=== PATIENT | male | born 1965 | race Two or more races ===

== ENCOUNTER 2016-04-12 10:10 | Inpatient (IN) | payer OTHER ==
[2016-04-12 10:44] VITALS: BMI 23.1
--- NOTE | 2016-04-12 17:04 | HP ---
COWS - Scale Resting Pulse: 0= [place] 80 or Below Sweatin= Chills/Flushing Restless Observation: 1= Difficult to Sit Still Pupil Size: 0= Normal to Room Light Bone or Joint Aches: 2= Severe Diffuse Aches Runny Nose/ Eye Tearin= Runny Nose/Eyes GI Upset > 30mins: 1= Stomach Cramp Tremor Observation: 2= Slight Tremor Visible Yawning Observation: 1= 1-2x During Session Anxiety or Irritability: 2=Irritable/Anxious Goose Flesh Skin: 3=Piloerection COWS Score: 15 Admission ROS S - HPI Chief Complaint: WITHDRAWAL SX Allergies/Adverse Reactions: Allergies Allergy/AdvReac Type Severity Reaction Status Date / Time No Known Allergies Allergy Verified 04/12/16 15:50 History of Present Illness: 51 YEARS OLD MALE WITH LONG HISTORY OF HEROIN NICOTINE DEPENDENCE, DENIES MEDICAL MENTAL ISSUES LONGEST SOBRIETY 3 YEARS IS ADMITTED TO DETOX Exam Limitations: No Limitations - Ebola screening Have you traveled outside of the country in the last 21 days: No Have you had contact with anyone from an Ebola affected area: No Have you been sick,other than usual withdrawal symptoms: No Do you have a fever: No - Review of Systems Constitutional: Chills, Loss of Appetite, Changes in sleep, Unexplained wgt Loss EENT: reports: No Symptoms Reported Respiratory: reports: No Symptoms reported Cardiac: reports: No Symptoms Reported GI: reports: Poor Fluid Intake, Abdominal cramping : reports: No Symptoms Reported Musculoskeletal: reports: Back Pain, Joint Pain, Muscle Pain, Neck Pain Integumentary: reports: Change in Color (BOTH ARMS IV HEROIN) Neuro: reports: Tremors Endocrine: reports: No Symptoms Reported Hematology: reports: No Symptoms Reported Psychiatric: reports: Judgement Intact, Mood/Affect Appropiate, Orientated x3 Other Systems: Reviewed and Negative Patient History - Patient Medical History Hx Anemia: No Hx Asthma: No Hx Chronic Obstructive Pulmonary Disease (COPD): No Hx Cancer: No Hx Cardiac Disorders: No Hx Congestive Heart Failure: No Hx Hypertension: No Hx Hypercholesterolemia: No Hx Pacemaker: No HX Cerebrovascular Accident: No Hx Seizures: No Hx Dementia: No Hx Diabetes: No Hx Gastrointestinal Disorders: No Hx Liver Disease: No Hx Genitourinary Disorders: No Hx Sexually Transmitted Disorders: No Hx Renal Disease (ESRD): No Hx Thyroid Disease: No Hx Human Immunodeficiency Virus (HIV): No Hx Hepatitis C: Yes (TREATED IN 2008 AND COMPLETED) Hx Depression: No Hx Suicide Attempt: No Hx Bipolar Disorder: No Hx Schizophrenia: No - Patient Surgical History Past Surgical History: No Hx Neurologic Surgery: No Hx Cataract Extraction: No Hx Cardiac Surgery: No Hx Lung Surgery: No Hx Breast Surgery: No Hx Breast Biopsy: No Hx Abdominal Surgery: No Hx Appendectomy: No Hx Cholecystectomy: No Hx Genitourinary Surgery: No Hx Orthopedic Surgery: No - PPD History Previous Implant?: No Documented Results: Positive w/o proof Implanted On Prior R Admission?: No PPD to be Administered?: No - Reproductive History Patient : No - Smoking Cessation Smoking history: Current every day smoker Have you smoked in the past 12 months: Yes Aproximately how many cigarettes per day: 10 Cigars Per Day: 0 Hx Chewing Tobacco Use: No Initiated information on smoking cessation: Yes 'Breaking Loose' booklet given: 04/12/16 - Substance & Tx. History Hx Alcohol Use: No Hx Substance Use: Yes Substance Use Type: Cocaine, Opiates Hx Substance Use Treatment: Yes - Substances Abused Heroin Route: Injection Frequency: Daily Amount used: 15 Age of first use: 28 Date of Last Use: 04/11/16 Cocaine Route: Injection Frequency: Daily Amount used: $ 10- 20 Age of first use: 19 Date of Last Use: 04/11/16 Family Disease History - Family Disease History Family Disease History: Diabetes: Mother, Other: Father (EPILEPSY) Admission Physical Exam BHS - Vital Signs Vital Signs: Vital Signs - 24 hr 04/12/16 10:40 Temperature 97.1 F L Pulse Rate 64 Respiratory 18 Rate Blood Pressure 99/67 - Physical General Appearance: Yes: Appropriately Dressed, Mild Distress, Thin, Tremorous, Irritable, Sweating, Anxious HEENTM: Yes: Hearing grossly Normal, Normal ENT Inspection, Normocephalic, Normal Voice Respiratory: Yes: Chest Non-Tender, Lungs Clear, Normal Breath Sounds, No Respiratory Distress, No Accessory Muscle Use Neck: Yes: Supple, Trachea in good position Breast: Yes: Breasts Symetrical Cardiology: Yes: Regular Rhythm, S1, S2, Bradycardia Abdominal: Yes: Non Tender, Soft Genitourinary: Yes: Within Normal Limits Back: Yes: Normal Inspection Musculoskeletal: Yes: full range of Motion, Gait Steady, Back pain, Muscle Pain Extremities: Yes: Normal Range of Motion, Non-Tender, Tremors, Other (ARMS IV STEWART) Neurological: Yes: Fully Oriented, Alert, Motor Strength 5/5, Normal Mood/Affect , Normal Response Integumentary: Yes: Warm, Moist Lymphatic: Yes: Within Normal Limits - Diagnostic (1) Opioid dependence with withdrawal Current Visit: Yes Status: Acute (2) Nicotine dependence Current Visit: Yes Status: Acute Qualifiers: Nicotine product type: cigarettes Substance use status: uncomplicated Qualified Code(s): F17.210 - Nicotine dependence, cigarettes, uncomplicated (3) Hepatitis C carrier Current Visit: Yes Status: Resolved (4) Positive PPD, treated Current Visit: Yes Status: Resolved (5) Weight loss Current Visit: Yes Status: Acute Cleared for Admission [facility] - Detox or Rehab [facility] Level of Care: Medically Managed Detox Regimen/Protocol: Methadone [facility] Breath Alcohol Content Breath Alcohol Content: 0 Urine Drug Screen - Results Drug Screen Negative: No Urine Drug Screen Results: GEOFFREY-Cocaine, OPI-Opiates
[2016-04-12] MEDS ORDERED: diphenhydrAMINE HCL 50 MG CAPSULE PO PRN (17:05)
[2016-04-12] MEDS ORDERED: LOPERAMIDE HCL 2 MG CAPSULE PO PRN (17:05)
[2016-04-12] MEDS ORDERED: MENTHOL/PHENOL 1 EACH UD MM PRN (17:05)
[2016-04-12] MEDS ORDERED: ACETAMINOPHEN 325 MG TABLET (FP) PO PRN (17:05)
[2016-04-12] MEDS ORDERED: MAGNESIUM HYDROX 2400MG/30ML ORAL SUSPENSION 30 ML CUP PO PRN (17:05)
[2016-04-12] MEDS ORDERED: guaiFENesin/D-METHORPHAN HB 10 ML UNIT-DOSE CUPS PO PRN (17:05)
[2016-04-12] MEDS ORDERED: P-EPHED 60MG/TRIPROLIDI 2.5MG TABLET PO PRN (17:05)
[2016-04-12] MEDS ORDERED: MAG HYDROX/AL HYDROX/SIMETH 30 ML UNIT-DOSE CUP PO PRN (17:05)
[2016-04-12] MEDS ORDERED: IBUPROFEN 400 MG TABLET (FP) PO PRN (17:05)
[2016-04-12] MEDS ORDERED: MAGNESIUM CITRATE 300 ML BOTTLE PO PRN (17:05)
[2016-04-12] MEDS ORDERED: NICOTINE POLACRILEX 2 MG GUM BC PRN (17:05)
[2016-04-12] MEDS ORDERED: METHADONE HCL 10 MG TABLET (FOR DETOX USE ONLY) PO ONE ×2 (17:15→23:00)
[2016-04-12] MEDS: diazePAM 5 MG TABLET PO PRN (18:55)
[2016-04-12] MEDS: THIAMINE HCL 100 MG TABLET (FP) PO SCH (22:16)
[2016-04-13] MEDS ORDERED: METHADONE HCL 10 MG TABLET (FOR DETOX USE ONLY) PO ONE (10:00)
[2016-04-13] MEDS: PRENATAL VITAMINS W/ FOLIC ACID TABLET (FP) PO SCH (10:15)
[2016-04-13] MEDS: diazePAM 5 MG TABLET PO PRN (10:15)
[2016-04-13] MEDS: NICOTINE 14 MG/24 HOURS TOPICAL PATCH TD SCH (10:16)
[2016-04-13 10:34] LABS: MCH 30.3 pg (25.7-33.7); MCHC 32.9 g/dl (32.0-35.9); MEAN PLT VOLUME 9.6 fl (7.5-11.1); PLATELET COUNT 263 K/MM3 (134-434); WHITE BLOOD COUNT 6.2 K/mm3 (4.0-10.0)
[2016-04-13 10:41] LABS: URINE APPEARANCE CLEAR; URINE BILIRUBIN NEGATIVE (NEGATIVE); URINE BLOOD NEGATIVE (NEGATIVE); URINE COLOR LTYELLOW; URINE GLUCOSE (UA) NEGATIVE (NEGATIVE); URINE KETONE NEGATIVE (NEGATIVE); URINE LEUK ESTERASE NEGATIVE (NEGATIVE); URINE NITRITE NEGATIVE (NEGATIVE); URINE PROTEIN NEGATIVE (NEGATIVE); URINE UROBILINOGEN NEGATIVE E.U./dl (0.2-1.0)
[2016-04-13 11:05] LABS: ALBUMIN 3.7 g/dl (3.4-5.0); ALK PHOS 97 U/L (45-117); ANION GAP 7 (8-16); BILIRUBIN,TOTAL 0.5 mg/dL (0.2-1.0); CALCIUM 9.1 mg/dL (8.5-10.1); CO2 29 mmol/L (21-32); CREATININE 0.9 mg/dL (0.7-1.3); GLUCOSE,RANDOM 75 mg/dL (74-106); SGOT/AST 26 U/L (15-37); SGPT/ALT 28 U/L (12-78); TOT PROT 7.2 g/dl (6.4-8.2)
--- NOTE | 2016-04-13 11:21 | PN ---
BHS COWS - Scale Resting Pulse: 0= [place] 80 or Below Sweatin=Flushed/Facial Moisture Restless Observation: 1= Difficult to Sit Still Pupil Size: 0= Normal to Room Light Bone or Joint Aches: 2= Severe Diffuse Aches Runny Nose/ Eye Tearin= Runny Nose/Eyes GI Upset > 30mins: 2= Nausea/Diarrhea Tremor Observation of Outstretched Hands: 2= Slight Tremor Visible Yawning Observation: 1= 1-2x During Session Anxiety or Irritability: 2=Irritable/Anxious Goose Flesh Skin: 0=Smooth Skin COWS Score: 14 BHS Progress Note (SOAP) Subjective: ANXIETY,TREMORS,SWEATING,INTERRUPTED SLEEP,RESTLESS Objective: 04/13/16 11:19 Vital Signs - 8 hr 04/13/16 04/13/16 04/13/16 03:30 06:22 10:28 Temperature 97.2 F L 98.7 F Pulse Rate 58 L 76 Respiratory 16 18 18 Rate Blood Pressure 130/75 106/67 Laboratory Tests 04/13/16 04/13/16 04/13/16 06:00 06:00 07:30 WBC 6.2 RBC 3.99 L Hgb 12.1 Hct 36.7 MCV 92.0 MCHC 32.9 RDW 14.0 Plt Count 263 MPV 9.6 Sodium 140 Potassium 4.6 Chloride 104 Carbon Dioxide 29 Anion Gap 7 L BUN 15 D Creatinine 0.9 Creat Clearance w eGFR > 60 Random Glucose 75 Calcium 9.1 Total Bilirubin 0.5 D AST 26 ALT 28 Alkaline Phosphatase 97 Total Protein 7.2 Albumin 3.7 Urine Color Ltyellow Urine Appearance Clear Urine pH 6.0 Ur Specific [place] 1.018 Urine Protein Negative Urine Glucose (UA) Negative Urine Ketones Negative Urine Blood Negative Urine Nitrite Negative Urine Bilirubin Negative Urine Urobilinogen Negative Ur Leukocyte Esterase Negative LABS NOTED Assessment: 04/13/16 11:21 WITHDRAWAL SX. Plan: CONTINUE DETOX
[2016-04-13] MEDS: THIAMINE HCL 100 MG TABLET (FP) PO SCH (23:19)
[2016-04-14] MEDS ORDERED: METHADONE HCL 5 MG TABLET (FOR DETOX USE ONLY) PO ONE (10:00)
[2016-04-14] MEDS: PRENATAL VITAMINS W/ FOLIC ACID TABLET (FP) PO SCH (10:16)
[2016-04-14] MEDS: NICOTINE 14 MG/24 HOURS TOPICAL PATCH TD SCH (10:17)
[2016-04-14] MEDS: diazePAM 5 MG TABLET PO PRN (10:35)
--- NOTE | 2016-04-14 13:39 | PN ---
BHS COWS - Scale Resting Pulse: 0= [place] 80 or Below Sweatin= Chills/Flushing Restless Observation: 3= Extraneous Movement Pupil Size: 0= Normal to Room Light Bone or Joint Aches: 2= Severe Diffuse Aches Runny Nose/ Eye Tearin= Runny Nose/Eyes GI Upset > 30mins: 2= Nausea/Diarrhea Tremor Observation of Outstretched Hands: 2= Slight Tremor Visible Yawning Observation: 0= None Anxiety or Irritability: 2=Irritable/Anxious Goose Flesh Skin: 0=Smooth Skin COWS Score: 14 BHS Progress Note (SOAP) Subjective: Sweating, poor sleep, restless, anxious, LBP since yesterday (pain scale 6/10), headache Objective: 04/14/16 13:38 Last Vital Signs Temp Pulse Resp BP Pulse Ox 97 F L 74 18 106/68 04/14/16 13:21 04/14/16 13:21 04/14/16 13:21 04/14/16 13:21 Laboratory Tests 04/13/16 04/13/16 04/13/16 06:00 06:00 06:00 WBC 6.2 RBC 3.99 L Hgb 12.1 Hct 36.7 MCV 92.0 MCHC 32.9 RDW 14.0 Plt Count 263 MPV 9.6 Sodium 140 Potassium 4.6 Chloride 104 Carbon Dioxide 29 Anion Gap 7 L BUN 15 D Creatinine 0.9 Creat Clearance w eGFR > 60 Random Glucose 75 Calcium 9.1 Total Bilirubin 0.5 D AST 26 ALT 28 Alkaline Phosphatase 97 Total Protein 7.2 Albumin 3.7 Urine Color Urine Appearance Urine pH Ur Specific [place] Urine Protein Urine Glucose (UA) Urine Ketones Urine Blood Urine Nitrite Urine Bilirubin Urine Urobilinogen Ur Leukocyte Esterase RPR Titer Nonreactive 04/13/16 07:30 WBC RBC Hgb Hct MCV MCHC RDW Plt Count MPV Sodium Potassium Chloride Carbon Dioxide Anion Gap BUN Creatinine Creat Clearance w eGFR Random Glucose Calcium Total Bilirubin AST ALT Alkaline Phosphatase Total Protein Albumin Urine Color Ltyellow Urine Appearance Clear Urine pH 6.0 Ur Specific [place] 1.018 Urine Protein Negative Urine Glucose (UA) Negative Urine Ketones Negative Urine Blood Negative Urine Nitrite Negative Urine Bilirubin Negative Urine Urobilinogen Negative Ur Leukocyte Esterase Negative RPR Titer Labs noted Assessment: 04/14/16 13:39 Withdrawal symptoms Plan: Continue detox
[2016-04-14] MEDS: THIAMINE HCL 100 MG TABLET (FP) PO SCH (23:13)
[2016-04-15 09:52] VITALS: BP 110/84; PULSE 69; TEMP 96.6
[2016-04-15] MEDS ORDERED: METHADONE HCL 5 MG TABLET (FOR DETOX USE ONLY) PO ONE (10:00)
[2016-04-15] MEDS: PRENATAL VITAMINS W/ FOLIC ACID TABLET (FP) PO SCH (10:08)
[2016-04-15] MEDS: diazePAM 5 MG TABLET PO PRN (10:09)
[2016-04-15] MEDS: NICOTINE 14 MG/24 HOURS TOPICAL PATCH TD SCH (10:09)
--- NOTE | 2016-04-15 10:44 | PN ---
BHS Progress Note (SOAP) Subjective: alert,irritable,anxious,interrupted sleep,pain in the body and back Objective: 04/15/16 10:42 Vital Signs Temperature 96.6 F L 04/15/16 09:51 Pulse Rate 69 04/15/16 09:51 Respiratory Rate 20 04/15/16 09:51 Blood Pressure 110/84 04/15/16 09:51 O2 Sat by Pulse Oximetry (%) Assessment: 04/15/16 10:43 withdrawal symptom Plan: continue detox
--- NOTE | 2016-04-15 10:48 | DS ---
S Detox Discharge Summary Admission Date: 04/12/16 Discharge Date: 04/15/16 - History Present History: Opioid Dependence Additional Comments: patient did not want to complete treatment,signed release ama Pertinent Past History: hepatitis c nicotine dependence positive ppd weight loss - Physical Exam Results Vital Signs: Vital Signs Temperature 96.6 F L 04/15/16 09:51 Pulse Rate 69 04/15/16 09:51 Respiratory Rate 20 04/15/16 09:51 Blood Pressure 110/84 04/15/16 09:51 O2 Sat by Pulse Oximetry (%) - Medication Discharge Medications: Ambulatory Orders NK [No Known Home Medication] 04/12/16 - AMA Did Patient Leave Against Medical Advice: Yes
[2016-04-16] MEDS ORDERED: METHADONE HCL 10 MG TABLET (FOR DETOX USE ONLY) PO ONE (10:00)
[2016-04-17] MEDS ORDERED: METHADONE HCL 5 MG TABLET (FOR DETOX USE ONLY) PO ONE (06:00)
--- NOTE | 2016-04-17 09:43 | EKG ---
Test Reason : Blood Pressure : / mmHG Vent. Rate : 055 BPM Atrial Rate : 055 BPM P-R Int : 142 ms QRS Dur : 088 ms QT Int : 466 ms P-R-T Axes : 081 062 068 degrees QTc Int : 445 ms SINUS BRADYCARDIA WITH OCCASIONAL PREMATURE VENTRICULAR COMPLEXES OTHERWISE NORMAL ECG NO PREVIOUS ECGS AVAILABLE Confirmed by MAHAD MARCH, NOHEMI ([id number]) on 04/17/2016 9:42:53 AM Referred By: Vikram Gramajo Confirmed By:NOHEMI TOBIN MD
== END 2016-04-15 11:27 | disposition left against medical advice (07) | DRG 770 ==
LOC: YASAS 10:10 → Y3N 15:49
PROVIDERS: ADMIT Internal Medicine; ATTEND Internal Medicine
PROC: HZ2ZZZZ Detoxification Services for Substance Abuse Treatment (ICD-10-PCS; principal; 2016-04-12)
DX: F11.23 Opioid dependence with withdrawal (principal); F14.20 Cocaine dependence, uncomplicated; F17.210 Nicotine dependence, cigarettes, uncomplicated; B18.2 Chronic viral hepatitis C; R00.1 Bradycardia, unspecified; Z87.898 Personal history of other specified conditions
CPT/HCPCS: 36415; 80053; 81003; 85027; 86593; 93005; 93010

== ENCOUNTER 2016-12-19 10:07 | Inpatient (IN) | payer OTHER ==
[2016-12-19 10:28] VITALS: BMI 23.5
--- NOTE | 2016-12-19 11:47 | HP ---
COWS - Scale Resting Pulse: 0= [place] 80 or Below Sweatin=Flushed/Facial Moisture Restless Observation: 1= Difficult to Sit Still Pupil Size: 2= Moderately Dilated Bone or Joint Aches: 2= Severe Diffuse Aches Runny Nose/ Eye Tearin= Runny Nose/Eyes GI Upset > 30mins: 2= Nausea/Diarrhea Tremor Observation: 2= Slight Tremor Visible Yawning Observation: 1= 1-2x During Session Anxiety or Irritability: 2=Irritable/Anxious Goose Flesh Skin: 0=Smooth Skin COWS Score: 16 Admission ROS S - HPI Chief Complaint: Withdrawal sx. Allergies/Adverse Reactions: Allergies Allergy/AdvReac Type Severity Reaction Status Date / Time Fish Containing Products Allergy Severe Swelling Verified 12/19/16 10:54 NKDA Allergy Uncoded 12/19/16 10:55 History of Present Illness: %1 y/o man with a long hx. of heroin dependence is admitted for detox. Pt. has been in previous detox,claims 2 1/2 yrs. drug free. Exam Limitations: No Limitations - Ebola screening Have you traveled outside of the country in the last 21 days: No Have you had contact with anyone from an Ebola affected area: No Have you been sick,other than usual withdrawal symptoms: No Do you have a fever: No - Review of Systems Constitutional: Diaphoresis EENT: reports: Nose Congestion Respiratory: reports: No Symptoms reported Cardiac: reports: No Symptoms Reported GI: reports: Nausea, Abdominal cramping : reports: No Symptoms Reported Musculoskeletal: reports: Back Pain Integumentary: reports: Sweating Neuro: reports: Headache, Tremors Endocrine: reports: No Symptoms Reported Hematology: reports: No Symptoms Reported Psychiatric: reports: No Sypmtoms Reported Other Systems: Reviewed and Negative Patient History - Patient Medical History Hx Anemia: No Hx Asthma: No Hx Chronic Obstructive Pulmonary Disease (COPD): No Hx Cancer: No Hx Cardiac Disorders: No Hx Congestive Heart Failure: No Hx Hypertension: No Hx Hypercholesterolemia: No Hx Pacemaker: No HX Cerebrovascular Accident: No Hx Seizures: No Hx Dementia: No Hx Diabetes: No Hx Gastrointestinal Disorders: No Hx Liver Disease: No Hx Genitourinary Disorders: No Hx Sexually Transmitted Disorders: Yes (gonorrhea) Hx Renal Disease (ESRD): No Hx Thyroid Disease: No Hx Human Immunodeficiency Virus (HIV): No Hx Hepatitis C: Yes (TREATED IN 2008 AND COMPLETED) Hx Depression: No Hx Suicide Attempt: No Hx Bipolar Disorder: No Hx Schizophrenia: No - Patient Surgical History Past Surgical History: No Hx Neurologic Surgery: No Hx Cataract Extraction: No Hx Cardiac Surgery: No Hx Lung Surgery: No Hx Breast Surgery: No Hx Breast Biopsy: No Hx Abdominal Surgery: No Hx Appendectomy: No Hx Cholecystectomy: No Hx Genitourinary Surgery: No Hx Section: No Hx Orthopedic Surgery: No Anesthesia Reaction: No - PPD History Previous Implant?: No Documented Results: Positive w/o proof PPD to be Administered?: No - Smoking Cessation Smoking history: Current every day smoker Have you smoked in the past 12 months: Yes Aproximately how many cigarettes per day: 10 Cigars Per Day: 0 Hx Chewing Tobacco Use: No Initiated information on smoking cessation: Yes 'Breaking Loose' booklet given: 12/19/16 - Substance & Tx. History Hx Alcohol Use: No Hx Substance Use: Yes Substance Use Type: Heroin Hx Substance Use Treatment: Yes (Detox at [facility] in 04/2016) - Substances Abused Heroin Route: Injection Frequency: Daily Amount used: 10 bags Age of first use: 28 Date of Last Use: 12/18/16 Family Disease History - Family Disease History Family Disease History: Diabetes: Mother, Other: Father (EPILEPSY) Admission Physical Exam S - Vital Signs Vital Signs: Vital Signs - 24 hr 12/19/16 10:18 Temperature 98.8 F Pulse Rate 62 Respiratory 20 Rate Blood Pressure 118/69 - Physical General Appearance: Yes: Sweating, Anxious HEENTM: Yes: Nasal Congestion, Rhinorrhea Respiratory: Yes: Chest Non-Tender, Lungs Clear, Normal Breath Sounds Neck: Yes: Supple Breast: Yes: Breast Exam Deferred Cardiology: Yes: Regular Rhythm, Regular Rate, S1, S2 Abdominal: Yes: Normal Bowel Sounds, Non Tender, Soft Genitourinary: Yes: Within Normal Limits Back: Yes: Within Normal Limits Musculoskeletal: Yes: Within Normal Limits Extremities: Yes: Tremors Neurological: Yes: Fully Oriented, Alert Integumentary: Yes: Diaphoresis Lymphatic: Yes: Within Normal Limits - Diagnostic (1) Nicotine dependence Current Visit: Yes Status: Acute Qualifiers: Nicotine product type: cigarettes Substance use status: uncomplicated Qualified Code(s): F17.210 - Nicotine dependence, cigarettes, uncomplicated (2) Opioid dependence with withdrawal Current Visit: Yes Status: Acute Cleared for Admission [facility] - Detox or Rehab [facility] Level of Care: Medically Managed Detox Regimen/Protocol: Methadone [facility] Breath Alcohol Content Breath Alcohol Content: 0 Urine Drug Screen - Results Drug Screen Negative: No Urine Drug Screen Results: OPI-Opiates
[2016-12-19] MEDS ORDERED: guaiFENesin/D-METHORPHAN HB 10 ML UNIT-DOSE CUPS PO PRN (11:49)
[2016-12-19] MEDS ORDERED: P-EPHED 60MG/TRIPROLIDI 2.5MG TABLET PO PRN (11:49)
[2016-12-19] MEDS ORDERED: NICOTINE POLACRILEX 2 MG GUM BUC PRN (11:49)
[2016-12-19] MEDS ORDERED: ACETAMINOPHEN 325 MG TABLET (FP) PO PRN (11:49)
[2016-12-19] MEDS ORDERED: MAGNESIUM HYDROX 2400MG/30ML ORAL SUSPENSION 30 ML CUP PO PRN (11:49)
[2016-12-19] MEDS ORDERED: diphenhydrAMINE HCL 50 MG CAPSULE PO PRN (11:49)
[2016-12-19] MEDS ORDERED: MAG HYDROX/AL HYDROX/SIMETH 30 ML UNIT-DOSE CUP PO PRN (11:49)
[2016-12-19] MEDS ORDERED: LOPERAMIDE HCL 2 MG CAPSULE PO PRN (11:49)
[2016-12-19] MEDS ORDERED: MENTHOL/PHENOL 1 EACH UD MM PRN (11:49)
[2016-12-19] MEDS ORDERED: MAGNESIUM CITRATE 300 ML BOTTLE PO PRN (11:49)
[2016-12-19] MEDS ORDERED: hydrOXYzine PAMOATE 50 MG CAPSULE (FP) PO PRN (11:49)
[2016-12-19] MEDS ORDERED: METHADONE HCL 10 MG TABLET (FOR DETOX USE ONLY) PO ONE ×2 (12:00→23:00)
[2016-12-19] MEDS: IBUPROFEN 400 MG TABLET (FP) PO PRN (12:49)
[2016-12-19] MEDS: diazePAM 5 MG TABLET PO PRN (12:50)
[2016-12-19] MEDS: NICOTINE 21 MG/24 HOURS TOPICAL PATCH TD SCH (12:51)
[2016-12-19 22:07] LABS: URINE APPEARANCE CLEAR; URINE BILIRUBIN NEGATIVE (NEGATIVE); URINE BLOOD NEGATIVE (NEGATIVE); URINE COLOR YELLOW; URINE GLUCOSE (UA) NEGATIVE (NEGATIVE); URINE KETONE NEGATIVE (NEGATIVE); URINE LEUK ESTERASE NEGATIVE (NEGATIVE); URINE NITRITE NEGATIVE (NEGATIVE); URINE PROTEIN NEGATIVE (NEGATIVE); URINE UROBILINOGEN NEGATIVE mg/dL (0.2-1.0)
[2016-12-19] MEDS: THIAMINE HCL 100 MG TABLET (FP) PO SCH (23:40)
[2016-12-20 09:55] LABS: ALBUMIN 3.7 g/dl (3.4-5.0); ALK PHOS 96 U/L (45-117); ANION GAP 7 (8-16); BILIRUBIN,TOTAL 0.3 mg/dL (0.2-1.0); CALCIUM 8.7 mg/dL (8.5-10.1); CO2 31 mmol/L (21-32); CREATININE 0.8 mg/dL (0.7-1.3); GLUCOSE,RANDOM 106 mg/dL (74-106); SGOT/AST 29 U/L (15-37); SGPT/ALT 31 U/L (12-78); TOT PROT 7.3 g/dl (6.4-8.2)
[2016-12-20 09:58] LABS: MCH 29.8 pg (25.7-33.7); MCHC 32.7 g/dl (32.0-35.9); MEAN PLT VOLUME 9.5 fl (7.5-11.1); PLATELET COUNT 291 K/MM3 (134-434); RDW 14.6 % (11.9-15.9); WHITE BLOOD COUNT 9.5 K/mm3 (4.0-10.0)
[2016-12-20] MEDS ORDERED: METHADONE HCL 10 MG TABLET (FOR DETOX USE ONLY) PO ONE (10:00)
[2016-12-20 10:39] LABS: HIV 1 & 2 AB NEGATIVE; HIV 1 AGp24 NEGATIVE
[2016-12-20] MEDS: PRENATAL VITAMINS W/ FOLIC ACID TABLET (FP) PO SCH (10:50)
[2016-12-20] MEDS: NICOTINE 21 MG/24 HOURS TOPICAL PATCH TD SCH (10:50)
--- NOTE | 2016-12-20 12:10 | PN ---
BHS COWS - Scale Resting Pulse: 0= [place] 80 or Below Sweatin=Flushed/Facial Moisture Restless Observation: 1= Difficult to Sit Still Pupil Size: 0= Normal to Room Light Bone or Joint Aches: 2= Severe Diffuse Aches Runny Nose/ Eye Tearin= Runny Nose/Eyes GI Upset > 30mins: 2= Nausea/Diarrhea Tremor Observation of Outstretched Hands: 2= Slight Tremor Visible Yawning Observation: 1= 1-2x During Session Anxiety or Irritability: 2=Irritable/Anxious Goose Flesh Skin: 0=Smooth Skin COWS Score: 14 BHS Progress Note (SOAP) Subjective: Sweating,anxiety,tremors,restless,interrupted sleep,muscle aches. Objective: 12/20/16 12:09 Vital Signs - 8 hr 12/20/16 12/20/16 06:25 11:13 Temperature 98 F 97.1 F L Pulse Rate 51 L 60 Respiratory 16 20 Rate Blood Pressure 104/60 120/78 Laboratory Tests 12/19/16 12/20/16 12/20/16 15:58 08:30 08:30 WBC 9.5 D RBC 4.18 Hgb 12.4 Hct 38.0 MCV 91.0 MCH 29.8 MCHC 32.7 RDW 14.6 Plt Count 291 MPV 9.5 Sodium Potassium Chloride Carbon Dioxide Anion Gap BUN Creatinine Creat Clearance w eGFR Random Glucose Calcium Total Bilirubin AST ALT Alkaline Phosphatase Total Protein Albumin Urine Color Yellow Urine Appearance Clear Urine pH 6.0 Ur Specific [place] 1.020 Urine Protein Negative Urine Glucose (UA) Negative Urine Ketones Negative Urine Blood Negative Urine Nitrite Negative Urine Bilirubin Negative Urine Urobilinogen Negative HIV 1&2 Antibody Screen Negative HIV P24 Antigen Negative 12/20/16 08:30 WBC RBC Hgb Hct MCV MCH MCHC RDW Plt Count MPV Sodium 138 Potassium 3.8 Chloride 100 Carbon Dioxide 31 Anion Gap 7 L BUN 15 Creatinine 0.8 Creat Clearance w eGFR > 60 Random Glucose 106 D Calcium 8.7 Total Bilirubin 0.3 D AST 29 ALT 31 Alkaline Phosphatase 96 Total Protein 7.3 Albumin 3.7 Urine Color Urine Appearance Urine pH Ur Specific [place] Urine Protein Urine Glucose (UA) Urine Ketones Urine Blood Urine Nitrite Urine Bilirubin Urine Urobilinogen HIV 1&2 Antibody Screen HIV P24 Antigen labs noted Assessment: 12/20/16 12:10 Withdrawal sx. Plan: Continue detox
[2016-12-20] MEDS: IBUPROFEN 400 MG TABLET (FP) PO PRN (15:16)
[2016-12-20] MEDS: THIAMINE HCL 100 MG TABLET (FP) PO SCH (22:30)
[2016-12-21] MEDS ORDERED: METHADONE HCL 5 MG TABLET (FOR DETOX USE ONLY) PO ONE (10:00)
[2016-12-21] MEDS: PRENATAL VITAMINS W/ FOLIC ACID TABLET (FP) PO SCH (10:46)
[2016-12-21] MEDS: diazePAM 5 MG TABLET PO PRN (10:46)
[2016-12-21] MEDS: NICOTINE 21 MG/24 HOURS TOPICAL PATCH TD SCH (10:47)
--- NOTE | 2016-12-21 15:08 | PN ---
BHS COWS - Scale Resting Pulse: 0= [place] 80 or Below Sweatin= Chills/Flushing Restless Observation: 1= Difficult to Sit Still Pupil Size: 0= Normal to Room Light Bone or Joint Aches: 1= Mild Discomfort Runny Nose/ Eye Tearin= Runny Nose/Eyes GI Upset > 30mins: 1= Stomach Cramp Tremor Observation of Outstretched Hands: 0= None Yawning Observation: 1= 1-2x During Session Anxiety or Irritability: 2=Irritable/Anxious Goose Flesh Skin: 3=Piloerection COWS Score: 12 BHS Progress Note (SOAP) Subjective: Sweating, H/A, Anxious, Interrupted sleep. Objective: PT. A & O X 3, OBSERVED AMBULATING ON UNIT. NO ACUTE DISTRESS. 12/21/16 15:06 Vital Signs Temperature 99.3 F 12/21/16 10:31 Pulse Rate 65 12/21/16 10:31 Respiratory Rate 16 12/21/16 10:31 Blood Pressure 108/72 12/21/16 10:31 O2 Sat by Pulse Oximetry (%) Laboratory Tests 12/19/16 12/20/16 12/20/16 15:58 08:30 08:30 WBC 9.5 D RBC 4.18 Hgb 12.4 Hct 38.0 MCV 91.0 MCH 29.8 MCHC 32.7 RDW 14.6 Plt Count 291 MPV 9.5 Sodium Potassium Chloride Carbon Dioxide Anion Gap BUN Creatinine Creat Clearance w eGFR Random Glucose Calcium Total Bilirubin AST ALT Alkaline Phosphatase Total Protein Albumin Urine Color Yellow Urine Appearance Clear Urine pH 6.0 Ur Specific [place] 1.020 Urine Protein Negative Urine Glucose (UA) Negative Urine Ketones Negative Urine Blood Negative Urine Nitrite Negative Urine Bilirubin Negative Urine Urobilinogen Negative RPR Titer HIV 1&2 Antibody Screen Negative HIV P24 Antigen Negative 12/20/16 12/20/16 08:30 08:30 WBC RBC Hgb Hct MCV MCH MCHC RDW Plt Count MPV Sodium 138 Potassium 3.8 Chloride 100 Carbon Dioxide 31 Anion Gap 7 L BUN 15 Creatinine 0.8 Creat Clearance w eGFR > 60 Random Glucose 106 D Calcium 8.7 Total Bilirubin 0.3 D AST 29 ALT 31 Alkaline Phosphatase 96 Total Protein 7.3 Albumin 3.7 Urine Color Urine Appearance Urine pH Ur Specific [place] Urine Protein Urine Glucose (UA) Urine Ketones Urine Blood Urine Nitrite Urine Bilirubin Urine Urobilinogen RPR Titer Nonreactive HIV 1&2 Antibody Screen HIV P24 Antigen LABS NOTED. Assessment: 12/21/16 15:07 WITHDRAWAL SYMPTOMS. Plan: CONTINUE DETOX.
[2016-12-21] MEDS: THIAMINE HCL 100 MG TABLET (FP) PO SCH (22:50)
[2016-12-22] MEDS: IBUPROFEN 400 MG TABLET (FP) PO PRN ×2 (05:48→15:03)
[2016-12-22] MEDS ORDERED: METHADONE HCL 5 MG TABLET (FOR DETOX USE ONLY) PO ONE (10:00)
[2016-12-22] MEDS ORDERED: METHADONE HCL 10 MG TABLET (FOR DETOX USE ONLY) PO ONE (10:32)
[2016-12-22] MEDS: NICOTINE 21 MG/24 HOURS TOPICAL PATCH TD SCH (10:48)
[2016-12-22] MEDS: diazePAM 5 MG TABLET PO PRN (10:48)
[2016-12-22] MEDS: PRENATAL VITAMINS W/ FOLIC ACID TABLET (FP) PO SCH (10:48)
--- NOTE | 2016-12-22 17:39 | PN ---
S Progress Note (SOAP) Subjective: Anxious, restless, interrupted sleep. Patient requesting to be discharged tomorrow by 7am. As per patient, he wants his methadone 15mg dose decreased today so that he can leave tomorrow at 0700 because he has an appt. Patient agreed to methadone 10mg today and 5mg at 0600 tomorrow. Objective: 12/22/16 17:37 Last Vital Signs Temp Pulse Resp BP Pulse Ox 99.1 F 54 L 18 110/58 12/22/16 09:49 12/22/16 09:49 12/22/16 09:49 12/22/16 09:49 Laboratory Tests 12/19/16 12/20/16 12/20/16 15:58 08:30 08:30 WBC 9.5 D RBC 4.18 Hgb 12.4 Hct 38.0 MCV 91.0 MCH 29.8 MCHC 32.7 RDW 14.6 Plt Count 291 MPV 9.5 Sodium Potassium Chloride Carbon Dioxide Anion Gap BUN Creatinine Creat Clearance w eGFR Random Glucose Calcium Total Bilirubin AST ALT Alkaline Phosphatase Total Protein Albumin Urine Color Yellow Urine Appearance Clear Urine pH 6.0 Ur Specific [place] 1.020 Urine Protein Negative Urine Glucose (UA) Negative Urine Ketones Negative Urine Blood Negative Urine Nitrite Negative Urine Bilirubin Negative Urine Urobilinogen Negative RPR Titer HIV 1&2 Antibody Screen Negative HIV P24 Antigen Negative 12/20/16 12/20/16 08:30 08:30 WBC RBC Hgb Hct MCV MCH MCHC RDW Plt Count MPV Sodium 138 Potassium 3.8 Chloride 100 Carbon Dioxide 31 Anion Gap 7 L BUN 15 Creatinine 0.8 Creat Clearance w eGFR > 60 Random Glucose 106 D Calcium 8.7 Total Bilirubin 0.3 D AST 29 ALT 31 Alkaline Phosphatase 96 Total Protein 7.3 Albumin 3.7 Urine Color Urine Appearance Urine pH Ur Specific [place] Urine Protein Urine Glucose (UA) Urine Ketones Urine Blood Urine Nitrite Urine Bilirubin Urine Urobilinogen RPR Titer Nonreactive HIV 1&2 Antibody Screen HIV P24 Antigen Labs noted Assessment: 12/22/16 17:37 Withdrawal symptoms Plan: Continue detox Methadone 15mg for today changed to 10mg. Ordered for 5mg methadone tomorrow at 6am. Patient for discharge tomorrow at 7am. Instructed to follow up with his PCP in 1-2 weeks post discharge for any medical problems/concerns.
[2016-12-22] MEDS: THIAMINE HCL 100 MG TABLET (FP) PO SCH (22:25)
[2016-12-23] MEDS ORDERED: METHADONE HCL 5 MG TABLET (FOR DETOX USE ONLY) PO ONE (06:00)
[2016-12-23 06:01] VITALS: BP 124/86; PULSE 56; TEMP 96.7
[2016-12-23] MEDS ORDERED: METHADONE HCL 10 MG TABLET (FOR DETOX USE ONLY) PO ONE (10:00)
--- NOTE | 2016-12-23 13:25 | DS ---
[facility] Detox Discharge Summary Admission Date: 12/19/16 Discharge Date: 12/23/16 - History Present History: Opioid Dependence Additional Comments: PATIENT REFUSES REHAB REFERRAL. PATIENT ADVISED TO CONSIDER LOCAL OUTPATIENT 12- STEP / NA PROGRAMS FOR AFTERCARE. PATIENT WAS DISCHARGED FROM DETOX UNIT IN STABLE MEDICAL CONDITION. Pertinent Past History: Hep C (Treated), Nicotine Dependence. - Physical Exam Results Vital Signs: Vital Signs Temperature 96.7 F L 12/23/16 06:00 Pulse Rate 56 L 12/23/16 06:00 Respiratory Rate 18 12/23/16 06:00 Blood Pressure 124/86 12/23/16 06:00 O2 Sat by Pulse Oximetry (%) Pertinent Admission Physical Exam Findings: WITHDRAWAL SYMPTOMS. Laboratory Tests 12/19/16 12/20/16 12/20/16 15:58 08:30 08:30 WBC 9.5 D RBC 4.18 Hgb 12.4 Hct 38.0 MCV 91.0 MCH 29.8 MCHC 32.7 RDW 14.6 Plt Count 291 MPV 9.5 Sodium Potassium Chloride Carbon Dioxide Anion Gap BUN Creatinine Creat Clearance w eGFR Random Glucose Calcium Total Bilirubin AST ALT Alkaline Phosphatase Total Protein Albumin Urine Color Yellow Urine Appearance Clear Urine pH 6.0 Ur Specific [place] 1.020 Urine Protein Negative Urine Glucose (UA) Negative Urine Ketones Negative Urine Blood Negative Urine Nitrite Negative Urine Bilirubin Negative Urine Urobilinogen Negative RPR Titer HIV 1&2 Antibody Screen Negative HIV P24 Antigen Negative 12/20/16 12/20/16 08:30 08:30 WBC RBC Hgb Hct MCV MCH MCHC RDW Plt Count MPV Sodium 138 Potassium 3.8 Chloride 100 Carbon Dioxide 31 Anion Gap 7 L BUN 15 Creatinine 0.8 Creat Clearance w eGFR > 60 Random Glucose 106 D Calcium 8.7 Total Bilirubin 0.3 D AST 29 ALT 31 Alkaline Phosphatase 96 Total Protein 7.3 Albumin 3.7 Urine Color Urine Appearance Urine pH Ur Specific [place] Urine Protein Urine Glucose (UA) Urine Ketones Urine Blood Urine Nitrite Urine Bilirubin Urine Urobilinogen RPR Titer Nonreactive HIV 1&2 Antibody Screen HIV P24 Antigen LABS NOTED. - Treatment Hospital Course: Detox Protocol Followed, Detoxed Safely, Responded well, Discharged Condition Good Patient has Accepted a Rehab Referral to: NO. PT. ADVISED TO CONSIDER LOCAL 12- STEP/NA OUTPATIENT PROGRAMS. - Medication Discharge Medications: Ambulatory Orders NK [No Known Home Medication] 04/12/16 - Diagnosis (1) Nicotine dependence Status: Chronic Qualifiers: Nicotine product type: cigarettes Substance use status: uncomplicated Qualified Code(s): F17.210 - Nicotine dependence, cigarettes, uncomplicated (2) Opioid dependence with withdrawal Status: Acute - AMA Did Patient Leave Against Medical Advice: No
--- NOTE | 2016-12-23 17:05 | EKG ---
Test Reason : Blood Pressure : / mmHG Vent. Rate : 068 BPM Atrial Rate : 054 BPM P-R Int : 134 ms QRS Dur : 086 ms QT Int : 410 ms P-R-T Axes : 071 055 055 degrees QTc Int : 435 ms SINUS BRADYCARDIA WITH OCCASIONAL PREMATURE VENTRICULAR COMPLEXES OTHERWISE NORMAL ECG WHEN COMPARED WITH ECG OF 13-APR-2016 19:00, NO SIGNIFICANT CHANGE WAS FOUND Confirmed by BRENNEN PERES MD ([id number]) on 12/23/2016 5:05:00 PM Referred By: Vikram Gramajo Confirmed By:BRENNEN PERES MD
[2016-12-24] MEDS ORDERED: METHADONE HCL 5 MG TABLET (FOR DETOX USE ONLY) PO ONE (06:00)
== END 2016-12-23 06:30 | disposition home or self-care (01) | DRG 773 ==
LOC: YASAS 10:07 → Y3N 11:41
PROVIDERS: ADMIT Internal Medicine; ATTEND Internal Medicine
PROC: HZ2ZZZZ Detoxification Services for Substance Abuse Treatment (ICD-10-PCS; principal; 2016-12-19)
DX: F11.23 Opioid dependence with withdrawal (principal); F17.210 Nicotine dependence, cigarettes, uncomplicated; Z87.438 Personal history of other diseases of male genital organs; Z86.19 Personal history of other infectious and parasitic diseases
CPT/HCPCS: 36415; 71020-TC; 80053; 81003; 85027; 86593; 87389; 93005; 93010